=== PATIENT | male | born 1960 | race Caucasian/White ===

== ENCOUNTER → 2020-04-23 13:38 | Outpatient (BNVA) | payer OTHER, SELFPAY | PROVIDERS: PCP Internal Medicine; Visit Provider Nurse Practitioner Family | DX: Z76.89 Persons encountering health services in other specified circumstances (principal) ==

== ENCOUNTER 2020-04-30 10:05 | Outpatient (REF) | payer OTHER, SELFPAY ==
[2020-04-30 11:43] LABS: Hematocrit 42.2 % (42-52); Hemoglobin 13.9 g/dl (14.0-18.0); Mean Corpuscular HGB Conc 32.9 g/dl (31.0-36.0); Mean Corpuscular Volume 90.9 fL (80-98); Mean Platelet Volume 9.8 fL (9.4-12.4); Platelet Count 294 X10*3/uL (160-400); Red Blood Count 4.64 X10*6/uL (4.60-5.80); Red Cell Distribution Width 13.1 % (11.0-16.0); White Blood Count 6.1 X10*3/uL (4.8-10.8)
[2020-04-30 11:51] LABS: Alanine Aminotransferase 30 U/L (0-40); Albumin Level 4.3 g/dL (3.5-5.0); Alkaline Phosphatase 46 U/L (39-117); Anion Gap 13 (12-20); Aspartate Amino Transferase 31 U/L (5-37); Bilirubin Total 1.4 mg/dL (0.0-1.0); Blood Urea Nitrogen 18 mg/dL (9-16); Calcium 9.2 mg/dL (8.4-10.2); Carbon Dioxide 29 mmol/L (22-29); Chloride 105 mmol/L (96-108); Cholesterol 195 mg/dL; Estimated Glomerular Filt Rate 58; Glucose Fasting 87 mg/dL (60-99); HDL Cholesterol 44 mg/dL; LDL Cholesterol Calculated 133 mg/dl; Potassium 4.5 mmol/l (3.3-5.1); Sodium 142 mmol/L (135-145); Total Protein 7.1 g/dL (6.5-8.0); Triglycerides 91 mg/dL
[2020-04-30 12:16] LABS: Prostate Specific Antigen Scr 0.76 ng/mL (<0.05-4.0)
[2020-04-30 12:47] LABS: Glucose Urine UA NEG (NEG); Leukocyte Esterase Urine NEG (NEG); Nitrite Urine NEG (NEG); Specific Gravity - Urine 1.025 (1.005-1.025); Urine Blood NEG (NEG); Urine Ketones NEG (NEG); Urine Protein NEG (NEG-TRACE)
[2020-04-30 12:58] LABS: Appearance Urine CLEAR; Color Urine YELLOW
[2020-04-30 14:34] LABS: Mucus Urine TRACE /LPF; RBC Urine 0 /HPF (0); WBC Urine 0-2 /HPF (0-4)
== END 2020-04-30 10:06 | disposition home or self-care (01) ==
LOC: HO.HMGCLDS 10:05
PROVIDERS: PCP Internal Medicine; Visit Provider Internal Medicine
DX: Z00.00 Encounter for general adult medical examination without abnormal findings (principal); Z12.5 Encounter for screening for malignant neoplasm of prostate
CPT/HCPCS: 36415; 80053; 80061; 81001; 84153; 85027

== ENCOUNTER 2020-05-29 07:34 | Day surgery (SDC) | payer OTHER, SELFPAY ==
[2020-05-23 10:31] VITALS: BMI 30.5
--- NOTE | 2020-05-28 09:40 | HO.ANESPROP2 ---
Documented by User: Tarsha Miranda 05/28/20 09:47 HPI - Anesthesia Eval Consult details Narrative: 60yo M for Colonoscopy [facility] Active Problems Active Problems: All Active Problems (Updated 05/23/20 @ 10:41 by Shannon Garcia) Annual physical exam (Acute) Past Medical History Medical History Elevated cholesterol Family History Family History Father Diabetes mellitus Stroke Mother Asthma Son No problems noted. Daughter No problems noted. Paternal Uncle Colon cancer Surgical History Surgical History H/O colonoscopy History of right inguinal hernia repair Social History Social History Are you a primary live in caregiver to a significant other at home: No Do you presently have visiting nurse or other home services: No Alcohol intake: never Smoking Status: Never smoker Use of substances other than those prescribed or required for medical reasons: No Advance Directives: No Advance Directives Information Provided: No Advance Directives on File: No Recently lost weight without trying: No Meds Allergies Allergy/AdvReac Type Severity Reaction Status Date / Time No Known Allergies Allergy Verified 05/23/20 10:41 Exam Exam Date and Time: May 28, 2020 0940 Height,Weight and Vital Signs: Height 6 ft 2 in Weight 107.955 kg Pertinent Lab Results Pertinent Lab Results: Laboratory Tests 04/30/20 04/30/20 10:15 10:15 WBC 6.1 Hgb 13.9 L Hct 42.2 Plt Count 294 Sodium 142 Potassium 4.5 Chloride 105 Carbon Dioxide 29 BUN 18 H Creatinine 1.27 Assessment and Plan Assessment Anesthesia Assessment: Chart Reviewed Documented by User: Asia Brady 05/29/20 09:14 PMFSH Past Medical History Medical History Elevated cholesterol Family History Family History Father Diabetes mellitus Stroke Mother Asthma Son No problems noted. Daughter No problems noted. Paternal Uncle Colon cancer Surgical History Surgical History H/O colonoscopy History of right inguinal hernia repair Social History Social History Are you a primary live in caregiver to a significant other at home: No Do you presently have visiting nurse or other home services: No Alcohol intake: never Smoking Status: Never smoker Use of substances other than those prescribed or required for medical reasons: No Advance Directives: No Advance Directives Information Provided: No Advance Directives on File: No Recently lost weight without trying: No Meds Allergies Allergy/AdvReac Type Severity Reaction Status Date / Time No Known Allergies Allergy Verified 05/23/20 10:41 Exam Airway Mallampati Class: II TM Dist: >3cm Neck ROM: Full Loose/Missing/Broken Teeth: No Heart: RRR Lungs: CTA Assessment and Plan Assessment Anesthesia Assessment: Anesthesia Plan Discussed and Chart Reviewed Final Anesthetic Review NPO: Yes ASA Class: I Final Preanesthetic Review: Meds/Allgs Chart Reviewed, Consent Obtained/Reviewed and Anes Risks/Benef Reviewed Patient Risk: Low Procedure Risk: Low Anesthetic Plan Anesthetic Plan: MAC: Disposition: Standard PACU
[2020-05-29 08:21] VITALS: BP 115/70; PULSE 62; RESP 14; TEMP 36.8; O2SAT 96; BMI 25.7
[2020-05-29] MEDS: Lactated Ringers 1,000 ML 100 ML IVCONT (08:25)
--- NOTE | 2020-05-29 09:35 | P.HPSUR_ITS ---
Pre-Procedural Eval Section B Chief Complaint: screening Details of Present Illness: Colon cancer screening--Father's brother recent dx of colon cancer Relevant Family History (Specify if Yes): Yes Relevant Social History: None Present Medications: see Short Stay Collaborative assessment Medical History: Significant History (Hyperlipidemia) History of Previous Operations: Relevant previous surgery/procedure and date(s) (colo--neg) Allergies: Allergies Allergy/AdvReac Type Severity Reaction Status Date / Time No Known Allergies Allergy Verified 05/23/20 10:41 Review of Systems Sugical H&P ROS: Negative: Constitution, Cardiovascular, Respiratory, Psychi atric, Gastrointestinal, Genitourinary and Musculoskeletal Exam Surgical H&P Exam: Normal: HEENT, Normal: Heart, Normal: Lungs and Normal: Extremities Plan Diagnosis/Plan: Unchanged I have reviewed the history and physical and performed a pertinent physical examination on my patient. No changes have occurred unless specified.YES
--- NOTE | 2020-05-29 10:17 | PM.PROC ---
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
[2020-05-29 10:21] VITALS: BP 111/63; PULSE 60; RESP 20; TEMP 36.1; O2SAT 100
[2020-05-29 10:35] VITALS: BP 148/94; PULSE 82; RESP 20; TEMP 36.1; O2SAT 99
--- NOTE | 2020-06-05 12:03 | W.PM.OPN ---
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 There was a lot of residual colonic contents including leafy vegetables that continuously clogged scope. Procedure stopped and resumed > 6 times. Able to get to the cecum--AO was visualized as was the valve. Visablity was poor, certainly no microadenomas could be seen. Scope was withdrawn. He will be rescheduled. PLAN: Suggest: Review labs to assess if there is any indication of anemia. Do Fit testing. Consider repeat exam in 12 months. (Sooner if either test raises any questions.) Estimated blood loss (mL): 0 Pathology: none sent Condition: stable Disposition: PACU PLAN IS OUTLINED ABOVE. Dictated By:Shaunna Lanza MDSigned By:<Electronically signed by Shaunna Lanza MD>06/04/20 1002
== END 2020-05-29 11:10 | disposition home or self-care (01) ==
PROVIDERS: PCP Internal Medicine; Visit Provider Internal Medicine Gastroenterology
PROC: 0DJD8ZZ Inspection of Lower Intestinal Tract, Via Natural or Artificial Opening Endoscopic (ICD-10-PCS; CPT 45378; principal; 2020-05-29 09:30)
DX: Z12.11 Encounter for screening for malignant neoplasm of colon (principal); Z80.0 Family history of malignant neoplasm of digestive organs
CPT/HCPCS: 45378

== ENCOUNTER 2021-12-16 09:16 | Outpatient (REF) | payer OTHER, SELFPAY ==
[2021-12-16 11:24] LABS: MANUAL DIFF FLAG NO
[2021-12-16 11:26] LABS: Appearance Urine Clear; Color Urine Yellow; Glucose Urine UA Negative (Negative); Leukocyte Esterase Urine Negative (Negative); Nitrite Urine Negative (Negative); PH 5.5 (5.0-8.0); Urine Blood Negative (Negative); Urine Ketones Negative (Negative); Urine Protein Negative (Neg-Trace)
[2021-12-16 11:30] LABS: Bacteria Urine None Seen (None Seen); Hyaline Casts Urine 0-2 /LPF (0-2); RBC Urine 0-2 /HPF (0-2); Squamous Epithelial Cell Urine 0-2 /HPF (0-2); WBC Urine 0-5 /HPF (0-5)
[2021-12-16 11:50] LABS: Basophils Absolute Auto 0.1 X10*3/uL (0.0-0.2); Basophils Percent Auto 1.2 % (0-2); Eosinophils Absolute Auto 0.4 X10*3/uL (0.0-0.4); Eosinophils Percent Auto 6.9 % (0-4); Hematocrit 42.6 % (42.0-52.0); Hemoglobin 14.6 g/dl (14.0-18.0); Imm Gran Abs Auto 0.01 X10*3/uL (0.00-0.03); Imm Gran Pct Auto 0.2 % (0.0-0.4); Lymphocytes Absolute Auto 2.1 X10*3/uL (1.2-4.9); Lymphocytes Percent Auto 36.9 % (20-40); Mean Corpuscular HGB Conc 34.3 g/dl (31.0-36.0); Mean Corpuscular Hemoglobin 30.2 pg (27.0-33.0); Mean Corpuscular Volume 88.2 fL (80.0-98.0); Mean Platelet Volume 9.8 fL (9.4-12.4); Monocytes Absolute Auto 0.6 X10*3/uL (0.1-1.2); Neutrophils Absolute Auto 2.6 x10*3/uL (2.0-8.3); Neutrophils Percent Auto 44.8 % (45-73); Platelet Count 302 X10*3/uL (160-400); Red Blood Count 4.83 X10*6/uL (4.60-5.80); Red Cell Distribution Width 13.1 % (11.0-16.0); White Blood Count 5.8 X10*3/uL (4.8-10.8)
[2021-12-16 12:12] LABS: Alanine Aminotransferase 30 U/L (0-40); Albumin Level 4.3 g/dL (3.5-5.0); Alkaline Phosphatase 50 U/L (39-117); Anion Gap 14 (12-20); Aspartate Amino Transferase 24 U/L (5-37); Bilirubin Total 0.9 mg/dL (0.0-1.0); Blood Urea Nitrogen 21 mg/dL (9-16); Calcium 9.3 mg/dL (8.4-10.2); Carbon Dioxide 25 mmol/L (22-29); Chloride 105 mmol/L (96-108); Cholesterol 192 mg/dL; Estimated Glomerular Filt Rate > 60; Glucose Fasting 95 mg/dL (60-99); HDL Cholesterol 40 mg/dL; LDL Cholesterol Calculated 118 mg/dl; Potassium 4.6 mmol/L (3.3-5.1); Sodium 139 mmol/L (135-145); Total Protein 7.4 g/dL (6.5-8.0); Triglycerides 174 mg/dL
[2021-12-16 12:16] LABS: PSA,Total (Free>4and<10) 0.71 ng/mL (0.00-4.00)
== END 2021-12-16 09:17 | disposition home or self-care (01) ==
LOC: HO.HMGCLDS 09:16
PROVIDERS: PCP Internal Medicine; Visit Provider Internal Medicine
DX: Z00.00 Encounter for general adult medical examination without abnormal findings (principal); Z12.5 Encounter for screening for malignant neoplasm of prostate; B35.3 Tinea pedis
CPT/HCPCS: 36415; 80053; 80061; 81001; 84153; 85025

== ENCOUNTER 2022-11-03 12:52 | Outpatient (AMB) | payer OTHER, SELFPAY ==
[2022-11-03 13:00] VITALS: BP 96/62; PULSE 78; O2SAT 96; BMI 30.3
--- NOTE | 2022-11-03 13:00 | MHC.PC.OV ---
Vital Signs 11/03/22 13:00 Height 6 ft 2 in Weight 236 lb BMI 30.3 BP 96/62 Blood Pressure Location Rt brachial Position Sitting Pulse 78 Pulse Source Pulse Oximeter Pulse Oximetry (%) 96 Oxygen Delivery Method Room Air Intake Visit Reasons: Gastro Referral-Colonoscopy Due Intake Note: Pt is here today for a follow up visit. Allergies No Known Allergies Allergy (Verified 11/03/22 13:02) Medication List - Last Reconciled 11/03/22 by Zenaida Wilkins MD ketoconazole 2% 1 appl topical BID nystatin 1 appl topical BID Tobacco use date assessed: 11/03/22 Dental Screening Dental Screen Date: 11/03/22 Did you have a dental visit in the last 12 months?: Yes Did you have a dental problem in the last 6 months where you did not have access to dental care?: No Was dental information given to patient?: Patient has dentist HPI Gastro Referral-Colonoscopy Due HPI Details Pt presents for PE. PFSH Medical History Elevated cholesterol Surgical History H/O colonoscopy History of right inguinal hernia repair Family History Father Diabetes mellitus Stroke Mother Asthma Son No problems noted. Daughter No problems noted. Paternal Uncle Colon cancer Social History Housing: House Are you a primary lawn care professional to a significant other at home: No Do you presently have visiting nurse or other home services: No Alcohol intake: never Patient Tobacco Use Status: Never used Tobacco e-Cigarette/Vaping Use: Never Used Current occupational status: employed Cognitive needs: No Hearing needs: No Vision needs: Yes Questionnaire PHQ-9 Over the last 2 weeks, how often have you been bothered by any of the following problems? 1. Little interest or pleasure in doing things: not at all 2. Feeling down, depressed, or hopeless: not at all 3. Trouble falling or staying asleep, or sleeping too much: not at all 4. Feeling tired or having little energy: not at all 5. Poor appetite or overeating: not at all 6. Feeling bad about yourself - or that you are a failure or have let yourself or your family down: not at all 7. Trouble concentrating on things, such as reading the newspaper or watching television: not at all 8. Moving or speaking so slowly that other people could have noticed. Or the opposite - being so fidgety or restless that you have been moving around a lot more than usual: not at all 9. Thoughts that you would be better off or of hurting yourself in some way: not at all Total score: 0 Depression Screening Interpretation: Negative Source: Developed by Drs. Ari Lorenzo, Valeria Pedro, Ben Fuchs and colleagues, with an educational aneta from [employer]. Thrive Questionnaire Date Thrive assessed: 11/03/22 I am a: Patient What is your living situation today?: I have a steady place to live Within the past 12 months, did the food you bought not last and you didn't have the money to get more?: Never true Within the past 12 months, did you worry whether your food would run out before you got money to buy more?: Never true Do you have trouble paying for medicines?: No Do you have trouble getting transportation to medical appointments?: No Do you have trouble paying your heating and electricity bill?: No Do you have trouble taking care of your child, family member or friend?: No Do you have trouble with day-to-day activities such as bathing, preparing meals, shopping, managing finances, etc.?: No Are you currently unemployed and looking for a job?: No Are you interested in more education?: No Please select the resources that you would like help with: None Currently or been in a relationship where the following occur: no concerns reported MEGAN-7 AMB Questionnaire MEGAN-7 Date MEGAN - 7 assessed: 11/03/22 Feeling nervous, anxious, or on edge: 0 = Not at all Not being able to stop or control worryin = Not at all Worrying too much about different things: 0 = Not at all Trouble relaxin = Not at all Being so restless that it is hard to sit still: 0 = Not at all Becoming easily annoyed or irritable: 0 = Not at all Feeling afraid as if something awful might happen: 0 = Not at all Total MEGAN-7 score (0-4 normal; 5-9 mild; 10-14 moderate; 15-21 severe): 0 Source: Developed by Drs. Ari Lorenzo, Valeria Pedro, Ben Fuchs and colleagues, with an educational aneta from [employer]. Review of Systems Const All systems reviewed & are unremarkable except as noted in HPI and below Reports no additional complaints Eyes Reports no additional complaints ENT Reports no additional complaints Card Reports no additional complaints Resp Reports no additional complaints GI Reports no additional complaints Reports no additional complaints Physical exam (Primary Care) Vital Signs: Last Vital Signs Pulse 78 11/03/22 13:00 BP 96/62 11/03/22 13:00 Pulse Ox 96 11/03/22 13:00 Oxygen Delivery Method Room Air 11/03/22 13:00 BMI result Body Mass Index 30.3 Tobacco/Smoking Status: Tobacco use Status Tobacco use date assessed 11/03/22 11/03/22 13:05 Patient Tobacco Use Status Never used Tobacco 11/03/22 13:05 e-Cigarette/Vaping Use Never Used 11/03/22 13:05 PHQ-9: PHQ-9 Score PHQ-9: Total score 0 11/03/22 13:05 Depression Screening Interpretation: Negative Thrive Assessment: Date of Thrive Assessment Date Thrive assessed 11/03/22 11/03/22 13:05 Currently or been in a relationship where the following occur: no concerns reported Const General: no acute distress HENMT Head: Yes normal to inspection Ears: hearing grossly normal bilaterally Face and sinus: Yes normal facial exam Mouth: Normal oral and palatal mucosa present Throat: Yes posterior oropharynx normal Eyes General: appearance normal, both eyes and all related structures Neck Neck: Yes no lymphadenopathy and Yes supple Resp Effort & Inspection: normal respiratory effort Auscultation: clear to auscultation bilaterally Cardio Rhythm: regular rhythm Heart sounds: S1 normal heart sound present and S2 normal heart sound present GI Inspection: Yes normal to inspection Palpation (GI): Soft to palpation Percussion: Yes normal to percussion Auscultation: normal bowel sounds Assessment and Plan Assessment & Plan (1) Annual physical exam: Code(s): Z00.00 - Encounter for general adult medical examination without abnormal findings Plan: well balanced diet, regular exercise discussed. Pt will return for fasting labs. Refer to GI for colonoscopy Orders: Orders Complete Blood Count no Diff Today Z00.00 - Encounter for general adult medical examination without abnormal findings Comprehensive [place]. Panel Fast Today Z00.00 - Encounter for general adult medical examination without abnormal findings Lipid Panel Today Z00.00 - Encounter for general adult medical examination without abnormal findings PSA,Total (Free>4and<10) Today Z00.00 - Encounter for general adult medical examination without abnormal findings Referrals Gastroenterology Referral Z00.00 - Encounter for general adult medical examination without abnormal findings Medications: Refilled ketoconazole 2% 1 appl topical BID 120 grams 2RF Coding Level of Care Code Est Pt Prev Care 40-64y(09125) Diagnoses Annual physical exam Z00.00
== END 2022-11-03 13:54 | disposition home or self-care (01) ==
PROVIDERS: PCP Internal Medicine; Visit Provider Internal Medicine
DX: Z00.00 Encounter for general adult medical examination without abnormal findings (principal)
CPT/HCPCS: 99396

== ENCOUNTER 2022-11-10 09:34 | Outpatient (REF) | payer OTHER, SELFPAY ==
[2022-11-10 13:56] LABS: Hematocrit 41.5 % (42.0-52.0); Hemoglobin 13.7 g/dl (14.0-18.0); Mean Corpuscular Hemoglobin 29.5 pg (27.0-33.0); Mean Corpuscular Volume 89.4 fL (80.0-98.0); Mean Platelet Volume 9.7 fL (9.4-12.4); Platelet Count 276 X10*3/uL (160-400); Red Blood Count 4.64 X10*6/uL (4.60-5.80); White Blood Count 5.9 X10*3/uL (4.8-10.8)
[2022-11-10 14:11] LABS: Alanine Aminotransferase 31 U/L (0-40); Albumin Level 3.9 g/dL (3.5-5.0); Alkaline Phosphatase 50 U/L (39-117); Anion Gap 9 (12-20); Aspartate Amino Transferase 26 U/L (5-37); Bilirubin Total 0.6 mg/dL (0.0-1.0); Blood Urea Nitrogen 15 mg/dL (9-16); Calcium 9.2 mg/dL (8.4-10.2); Carbon Dioxide 28 mmol/L (22-29); Chloride 105 mmol/L (96-108); Cholesterol 176 mg/dL; Estimated Glomerular Filt Rate > 60; Glucose Fasting 93 mg/dL (60-99); HDL Cholesterol 41 mg/dL; LDL Cholesterol Calculated 112 mg/dl; Potassium 4.1 mmol/L (3.3-5.1); Sodium 138 mmol/L (135-145); Total Protein 6.9 g/dL (6.5-8.0); Triglycerides 116 mg/dL
== END 2022-11-10 09:35 | disposition home or self-care (01) ==
LOC: HO.HMGCLDS 09:34
PROVIDERS: PCP Internal Medicine; Visit Provider Internal Medicine
DX: Z00.00 Encounter for general adult medical examination without abnormal findings (principal); Z12.5 Encounter for screening for malignant neoplasm of prostate
CPT/HCPCS: 36415; 80053; 80061; 84153; 85027

== ENCOUNTER 2022-12-29 11:37 | Outpatient (AMB) | payer OTHER, SELFPAY ==
--- NOTE | 2022-12-29 11:42 | A.OFFVIS_ITS ---
Intake Vital Signs 12/29/22 11:43 Height 6 ft 2 in Weight 241 lb 10.026 oz BMI 31.0 BP 127/73 Blood Pressure Location Rt brachial Position Sitting Pulse 83 Pulse Source Pulse Oximeter Intake Visit Reasons: Colonoscopy Screening Intake Note: Pt presents to the office today for a colonoscpy screening. Pt states he does't have any concerns of N/V/D. He states his paternal uncle had colon cancer and has now been for about a year now. Allergies No Known Allergies Allergy (Verified 12/29/22 11:45) HPI Colonoscopy Screening HPI Details LAST VISIT WITH DR. AUGUSTIN 06/10/2020 FINDINGS: LAVERNE-Prostate unremarkable Scope introduced without difficulty. There was a lot of residual colonic contents including leafy vegetables that continuously clogged scope. Procedure stopped and resumed > 6 times. Able to get to the cecum--AO was visualized as was the valve. Visablity was poor, certainly no microadenomas could be seen. Scope was withdrawn. He will be rescheduled. PLAN: Suggest: Review labs to assess if there is any indication of anemia. Do Fit testing. Consider repeat exam in 12 months. (Sooner if either test raises any questions.) TODAY'S VISIT: 62 year old? male here today for pre col onoscopy screening.? Patient was sent to us by his PCP. Patient had 1st colonoscopy at age 51, no polyps found. Colonoscopy 2 years ago in May of 2020 was incomplete due to suboptimal prep and patient was asked to return within a year. Last year patient found out that his paternal uncle of colorectal cancer. ? Patient denies any gastrointestinal symptoms in the past or at present.? Denies history of difficulty with sedation or anesthesia in the past.? Negative for history of sleep apnea.? Denies any history of cardiac, renal, pulmonary, or hepatic disease.?? No history of infectious? diseases like hepatitis A, B, C, HIV or tuberculosis.? Patient is on low-dose aspirin [facility] Medical History Elevated cholesterol Surgical History History of right inguinal hernia repair H/O colonoscopy Family History Father Diabetes mellitus Stroke Mother Asthma Son No problems noted. Daughter No problems noted. Paternal Uncle Colon cancer Social History Housing: House Are you a primary health care analyst to a significant other at home: No Do you presently have visiting nurse or other home services: No Alcohol intake: never Patient Tobacco Use Status: Never used Tobacco e-Cigarette/Vaping Use: Never Used Current occupational status: employed Cognitive needs: No Hearing needs: No Vision needs: Yes Review of Systems Const Denies weight gain and Denies weight loss ENT Reports no additional complaints, Denies dysphagia and Denies odynophagia Card Reports no additional complaints Resp Reports no additional complaints GI Denies abdominal pain, Denies belching, Denies melena, Denies bloating, Denies change in bowel habits, Denies dysphagia, Denies excessive flatus, Denies dyspepsia, Denies heartburn, Denies diarrhea, Denies loose stools, Denies n ausea, Denies odynophagia and Denies vomiting Reports no additional complaints Musc Reports no additional complaints Neuro Reports no additional complaints Psych Reports no additional complaints Endo Reports no additional complaints Physical Exam Vital Signs: Last Vital Signs Pulse 83 12/29/22 11:43 BP 127/73 12/29/22 11:43 BMI result Body Mass Index 31.0 Const General: healthy appearing, no acute distress and well developed Nutritional Appearance: obese Orientation/consciousness: patient oriented x3 HEENT Head: Yes normal to inspection, Yes normocephalic and Yes atraumatic Face and sinus: Yes normal facial exam Mouth: Normal oral and palatal mucosa present Throat: Yes posterior oropharynx normal, Yes tonsils normal and Yes uvula midline Eyes General: appearance normal, both eyes and all related structures Neck Neck: Yes normal visual inspection, Yes full ROM and Yes trachea midline Thyroid: Thyroid normal Resp Effort & Inspection: normal respiratory effort, able to speak in complete sentences, no tracheal deviation and symmetric chest movement Auscultation: clear to auscultation bilaterally Cardio Rate: regular rate Heart sounds: S1 normal heart sound present and S2 normal heart sound present GI Inspection: Yes normal to inspection, No distended and Yes obesity Palpation (GI): Soft to palpation, not firm, nontender and No hepatosplenomegaly present Auscultation: normal bowel sounds General: Yes no CVA tenderness Back/Spine/Pelvis Back: no CVA tenderness Skin General skin exam: elasticity normal, turgor normal and dry skin Neuro General: patient oriented x3 Psych Appearance: grossly normal Mental Status: mental status grossly normal Assessment & Plan Assessment & Plan (1) Screen for colon cancer: Code(s): Z12.11 - Encounter for screening for malignant neoplasm of colon Plan: Patient denies any GI, cardiac or respiratory symptoms.? Denies any issues with anesthesia in the past.? Denies any history of sleep apnea.? No history infectious diseases in the past or present.? Patient is on low-dose aspirin.? Patient reports that a paternal own call diet of colon cancer last year.? Patient denies melena, hematochezia, unintentional weight loss or ribbon like stools.? Discussed at length the pre-procedure,? prep, diet & medications as well as what to expect prior, during and after the procedure.?? Stressed the importance of good bowel prep. ?Recommended the use of Vaseline or Calmoseptine OTC & baby wipes with bowel movements to promote comfort.? ?Patient verbalizes understanding and agrees to plan of care.? He was given the opportunity to ask questions and all questions answered.? We will see him after the procedure.? Coding Level of Care Code Est Pt Level 3 (16875) Diagnoses Screen for colon cancer Z12.11 Time Spent (min) 35 Comment 20 minutes spent with patient and additional 15 minutes spent reviewing his records
[2022-12-29 11:43] VITALS: BP 127/73; PULSE 83; BMI 31.0
== END 2022-12-29 15:55 | disposition home or self-care (01) ==
PROVIDERS: PCP Internal Medicine; Visit Provider Nurse Practitioner Family
DX: Z01.818 Encounter for other preprocedural examination (principal); Z12.11 Encounter for screening for malignant neoplasm of colon
CPT/HCPCS: S0285

== ENCOUNTER → 2022-12-29 11:37 | Outpatient (BNVA) | payer OTHER, SELFPAY | PROVIDERS: PCP Internal Medicine; Visit Provider Nurse Practitioner Family ==

== ENCOUNTER 2024-07-04 09:41 | Outpatient (REF) | payer BC, SELFPAY ==
--- OUTSIDE RECORDS SUMMARY | 2024-07-04 10:36 | XMS_ITS | Patient Health Record ---
Author Organization [facility] Address [address] [place] [address] Care Team Providers Care Wood Buffer Name Role Phone Ivonne OSCAR, Enio Primary Care Provider Ari Lobo Unavailable [phone] Reason For Referral No Information Medications Medication SIG (Take, Route, Frequency, Duration) Notes Start Date End Date Status Multi Vitamin/Minerals 04/20/20242024 Active MoviPrep 100 GM as directed Orally o nce for 1 dose 06/17/2011 04/20/2024 Active Problems Problem Type SNOMED Code ICD Code Onset Dates Problem Status W/U Status Risk Notes Problem Flatulence, eructation and gas pain (734118272) Flatulence, eructation, and gas pain (787.3) Active confirmed Problem Screening for malignant neoplasm of colon (602736279) Special screening for malignant neoplasms, colon (V76.51) Active confirmed Plan Of Treatment Future Test Test Name Order Date COLONOSCOPY 06/17/2011 Insurance Providers Payer Name Payer Address Payer Phone Subscriber Number Group Number Insured Name Patient Relationship to Insured Coverage Start Date Coverage End Date [facility] [address] [place], [place] [id number] ISRAEL DORMAN Self - patient is the insured Medical (General) History Medical History History ICD Code Denies SD,DM,CVA,Lung disease,renal dise ase Surgical History Surgery Date(Month/Year) hernia
[2024-07-04 13:15] LABS: MANUAL DIFF FLAG NO
[2024-07-04 13:25] LABS: Basophils Absolute Auto 0.1 X10*3/uL (0.0-0.2); Eosinophils Absolute Auto 0.4 X10*3/uL (0.0-0.4); Eosinophils Percent Auto 4.8 % (0-4); Hematocrit 43.4 % (42.0-52.0); Hemoglobin 14.6 g/dl (14.0-18.0); Imm Gran Abs Auto 0.02 X10*3/uL (0.00-0.03); Imm Gran Pct Auto 0.2 % (0.0-0.4); Lymphocytes Absolute Auto 1.9 X10*3/uL (1.2-4.9); Lymphocytes Percent Auto 22.9 % (20-40); Mean Corpuscular HGB Conc 33.6 g/dl (31.0-36.0); Mean Corpuscular Volume 89.3 fL (80.0-98.0); Mean Platelet Volume 9.6 fL (9.4-12.4); Monocytes Absolute Auto 0.7 X10*3/uL (0.1-1.2); Monocytes Percent Auto 8.2 % (2-11); Neutrophils Absolute Auto 5.3 x10*3/uL (2.0-8.3); Neutrophils Percent Auto 62.9 % (45-73); Platelet Count 275 X10*3/uL (160-400); Red Blood Count 4.86 X10*6/uL (4.60-5.80); Red Cell Distribution Width 13.2 % (11.0-16.0); White Blood Count 8.4 X10*3/uL (4.8-10.8)
[2024-07-04 13:49] LABS: Alanine Aminotransferase 37 U/L (0-40); Albumin Level 4.3 g/dL (3.5-5.0); Alkaline Phosphatase 47 U/L (39-117); Anion Gap 11 (12-20); Aspartate Amino Transferase 31 U/L (5-37); Bilirubin Total 1.3 mg/dL (0.0-1.0); Blood Urea Nitrogen 18 mg/dL (9-16); Calcium 9.2 mg/dL (8.4-10.2); Carbon Dioxide 27 mmol/L (22-29); Chloride 106 mmol/L (96-108); Cholesterol 192 mg/dL (<200); Estimated Glomerular Filt Rate > 60; Glucose Fasting 95 mg/dL (60-99); HDL Cholesterol 47 mg/dL (>40); LDL Cholesterol Calculated 119 mg/dL (<100); Potassium 4.2 mmol/L (3.3-5.1); Sodium 140 mmol/L (135-145); Total Protein 7.7 g/dL (6.5-8.0); Triglycerides 131 mg/dL (<150)
== END 2024-07-04 09:42 | disposition home or self-care (01) ==
LOC: HO.HMGCLDS 09:41
PROVIDERS: PCP Internal Medicine; Visit Provider Internal Medicine
DX: Z00.00 Encounter for general adult medical examination without abnormal findings (principal); Z13.6 Encounter for screening for cardiovascular disorders
CPT/HCPCS: 36415; 80053; 80061; 85025

== ENCOUNTER 2024-07-18 10:32 | Outpatient (AMB) | payer BC, SELFPAY ==
[2024-07-18 10:33] VITALS: BP 114/76; PULSE 67; RESP 20; TEMP 36.6; O2SAT 97; BMI 29.8
--- NOTE | 2024-07-18 10:33 | MHC.PC.OV ---
Vital Signs 07/18/24 10:33 Height 6 ft 2 in Weight 232 lb BMI 29.8 BP 114/76 Blood Pressure Location Lt brachial Position Sitting Respiration 20 Pulse 67 Pulse Source Pulse Oximeter Temp 97.9 F Temp Source Oral Pulse Oximetry (%) 97 Oxygen Delivery Method Room Air Intake Visit Reasons: PE Intake Note: Pt is here today for PE. Allergies No Known Allergies Allergy (Verified 07/18/24 10:36) Medication List - Last Reconciled 07/18/24 by Zenaida Wilkins MD bisacodyl (Dulcolax (bisacodyl)) 20 mg (4 x 5 mg) PO ONCE 1 day ketoconazole 2% 1 appl topical BID polyethylene glycol 3350 (Miralax) 238 grams PO ONCE 1 day Tobacco use date assessed: 11/03/22 Dental Screening Dental Screen Date: 11/03/22 HPI PE HPI Details Pt presents for PE. [facility] Medical History Elevated cholesterol Surgical History History of right inguinal hernia repair H/O colonoscopy Family History Father Diabetes mellitus Stroke Mother Asthma Son No problems noted. Daughter No problems noted. Paternal Uncle Colon cancer Social History Housing: House Are you a primary home care giver to a significant other at home: No Do you presently have visiting nurse or other home services: No Alcohol intake: never Patient Tobacco Use Status: Never used Tobacco e-Cigarette/Vaping Use: Never Used Current occupational status: employed Cognitive needs: No Hearing needs: No Vision needs: Yes Questionnaire PHQ-9 Over the last 2 weeks, how often have you been bothered by any of the following problems? 1. Little interest or pleasure in doing things: more than half the days 2. Feeling down, depressed, or hopeless: not at all 3. Trouble falling or staying asleep, or sleeping too much: not at all 4. Feeling tired or having little energy: not at all 5. Poor appetite or overeating: not at all 6. Feeling bad about yourself - or that you are a failure or have let yourself or your family down: not at all 7. Trouble concentrating on things, such as reading the newspaper or watching television: not at all 8. Moving or speaking so slowly that other people could have noticed. Or the opposite - being so fidgety or restless that you have been moving around a lot more than usual: not at all 9. Thoughts that you would be better off or of hurting yourself in some way: not at all Total score: 2 Depression Screening Interpretation: Negative Depression Screening Done: Yes 44506 - PHQ-9 Billing: Yes Source: Developed by Drs. Ari Lorenzo, Valeria Pedro, Ben Fuchs and colleagues, with an educational aneta from [employer]. Thrive Questionnaire Date Thrive assessed: 07/18/24 I am a: Patient What is your living situation today?: I have a steady place to live Within the past 12 months, did the food you bought not last and you didn't have the money to get more?: I choose not to answer this question Within the past 12 months, did you worry whether your food would run out before you got money to buy more?: I choose not to answer this question Do you have trouble paying for medicines?: I choose not to answer this question Do you have trouble getting transportation to medical appointments?: No Do you have trouble paying your heating and electricity bill?: I choose not to answer this question Do you have trouble taking care of your child, family member or friend?: No Do you have trouble with day-to-day activities such as bathing, preparing meals, shopping, managing finances, etc.?: No Are you currently unemployed and looking for a job?: No Are you interested in more education?: I choose not to answer this question Please select the resources that you would like help with: None Currently or been in a relationship where the following occur: I choose not to answer THRIVE Score: 0 AUDIT C Alcohol Use Questionnaire (AUDIT-C) 1. How often do you have a drink containing alcohol?: Never 3. How often do you have six or more drinks on one occasion?: Never Total Score: 0 MEGAN-7 AMB Questionnaire MEGAN-7 Date MEGAN - 7 assessed: 07/18/24 Feeling nervous, anxious, or on edge: 0 = Not at all Not being able to stop or control worryin = Not at all Worrying too much about different things: 0 = Not at all Trouble relaxin = Not at all Being so restless that it is hard to sit still: 0 = Not at all Becoming easily annoyed or irritable: 0 = Not at all Feeling afraid as if something awful might happen: 0 = Not at all Total MEGAN-7 score (0-4 normal; 5-9 mild; 10-14 moderate; 15-21 severe): 0 Source: Developed by Drs. Ari Lorenzo, Valeria Pedro, Ben Fuchs and colleagues, with an educational aneta from [employer]. MEGAN-7 Assessment Billing MEGAN-7 Assessment Tool: MEGAN-7 Assessment 71374 Review of Systems Const All systems reviewed & are unremarkable except as noted in HPI and below Eyes Reports no additional complaints ENT Reports no additional complaints Card Reports no additional complaints Resp Reports no additional complaints GI Reports no additional complaints Reports no additional complaints Physical exam (Primary Care) Vital Signs: Last Vital Signs Temp 97.9 F 07/18/24 10:33 Pulse 67 07/18/24 10:33 Resp 20 07/18/24 10:33 BP 114/76 07/18/24 10:33 Pulse Ox 97 07/18/24 10:33 Oxygen Delivery Method Room Air 07/18/24 10:33 BMI result Body Mass Index 29.8 Tobacco/Smoking Status: Tobacco use Status Tobacco use date assessed 11/03/22 07/18/24 10:35 Patient Tobacco Use Status Never used Tobacco 07/18/24 10:35 e-Cigarette/Vaping Use Never Used 07/18/24 10:35 PHQ-9: PHQ-9 Score PHQ-9: Total score 2 07/18/24 10:39 Depression Screening Interpretation: Negative Thrive Assessment: Date of Thrive Assessment Date Thrive assessed 07/18/24 07/18/24 10:39 Currently or been in a relationship where the following occur: I choose not to answer Const General: no acute distress HENMT Head: Yes normal to inspection Ears: hearing grossly normal bilaterally Face and sinus: Yes normal facial exam Mouth: Normal oral and palatal mucosa present Eyes General: appearance normal, both eyes and all related structures Neck Neck: Yes no lymphadenopathy and Yes supple Resp Effort & Inspection: normal respiratory effort Auscultation: clear to auscultation bilaterally Cardio Rhythm: regular rhythm Heart sounds: S1 normal heart sound present and S2 normal heart sound present GI Inspection: Yes normal to inspection Palpation (GI): Soft to palpation Percussion: Yes normal to percussion Auscultation: normal bowel sounds Skin Other: Multiple dysplastic nevi on chest and back Coding Level of Care Code Est Pt Prev Care 40-64y(30026) Diagnoses Dysplastic nevi D23.9 Annual physical exam Z00.00 H/O colonoscopy Z98.890 Additional Codes MEGAN-7 Assessment Billing - MEGAN-7 Assessment Tool: MEGAN-7 Assessment 68262 ([id number]) PHQ-9 - 16502 - PHQ-9 Billing: Yes ([id number]) Assessment & Plan Assessment & Plan (1) Dysplastic nevi: Code(s): D23.9 - Other benign neoplasm of skin, unspecified Category: Medical Plan: refer to dermatology (2) Annual physical exam: Code(s): Z. - Encounter for general adult medical examination without abnormal findings Category: Medical Plan: Well-balanced diet regular physical activity discussed with the patient (3) H/O colonoscopy: Comment: 2020- Dr Lanza, poor prep repeat in 1 year recommended Code(s): Z98.890 - Other specified postprocedural states Category: Surgical Plan: Referred to GI to schedule overdue colonoscopy Orders: Orders Comprehensive Collbran. Panel Fast 1 Year Z00.00 - Encounter for general adult medical examination without abnormal findings Complete Blood Count Auto Diff 1 Year Z00.00 - Encounter for general adult medical examination without abnormal findings Lipid Panel 1 Year Z00.00 - Encounter for general adult medical examination without abnormal findings UA w Microscopic 1 Year Z00.00 - Encounter for general adult medical examination without abnormal findings PSA,Total (Free>4and<10) 1 Year Z00.00 - Encounter for general adult medical examination without abnormal findings Referrals Dermatology Referral D23.9 - Other benign neoplasm of skin, unspecified Gastroenterology Referral Z00.00 - Encounter for general adult medical examination without abnormal findings
--- OUTSIDE RECORDS SUMMARY | 2024-07-18 11:50 | XMS_ITS | Patient Health Record ---
Author Organization [facility] Address [address] [place] [address] Care Team Providers Care Planetarium Sky Show Technician Name Role Phone Ivonne OSCAR, Enio Primary Care Provider Ari Lobo Unavailable [phone] Reason For Referral No Information Medications Medication SIG (Take, Route, Frequency, Duration) Notes Start Date End Date Status Multi Vitamin/Minerals 04/20/20242024 Active MoviPrep 100 GM as directed Orally o nce for 1 dose 06/17/2011 04/20/2024 Active Problems Problem Type SNOMED Code ICD Code Onset Dates Problem Status W/U Status Risk Notes Problem Flatulence, eructation and gas pain (776853364) Flatulence, eructation, and gas pain (787.3) Active confirmed Problem Screening for malignant neoplasm of colon (014489177) Special screening for malignant neoplasms, colon (V76.51) Active confirmed Plan Of Treatment Future Test Test Name Order Date COLONOSCOPY 06/17/2011 Insurance Providers Payer Name Payer Address Payer Phone Subscriber Number Group Number Insured Name Patient Relationship to Insured Coverage Start Date Coverage End Date [facility] [address] [place], [place] [id number] ISRAEL DORMAN Self - patient is the insured Medical (General) History Medical History History ICD Code Denies [place],DM,CVA,Lung disease,renal dise ase Surgical History Surgery Date(Month/Year) hernia
== END 2024-07-18 11:17 | disposition home or self-care (01) ==
PROVIDERS: PCP Internal Medicine; Visit Provider Internal Medicine
DX: D23.9 Other benign neoplasm of skin, unspecified (principal); Z00.00 Encounter for general adult medical examination without abnormal findings; Z98.890 Other specified postprocedural states

== ENCOUNTER → 2024-07-18 10:32 | Outpatient (BNVA) | payer BC, SELFPAY | PROVIDERS: PCP Internal Medicine; Visit Provider Internal Medicine | DX: Z00.00 Encounter for general adult medical examination without abnormal findings (principal); D23.9 Other benign neoplasm of skin, unspecified; Z98.890 Other specified postprocedural states | CPT/HCPCS: 96127 ==

== ENCOUNTER 2024-09-26 11:36 | Outpatient (REF) | payer BC, SELFPAY ==
--- NOTE | ~2024-09-26 | XR_ITS ---
EXAMINATION: XR CHEST CLINICAL INFORMATION: R05.9 - Cough, unspecified COMPARISON: None available. TECHNIQUE: 2 views of the chest were obtained. FINDINGS: The cardiac, hilar, and mediastinal contours are normal. The lungs are clear bilaterally. There is no pneumothorax or pleural effusion. There is no focal osseous or soft tissue abnormality. XR/XR chest 2V IMPRESSION: No active pulmonary disease. Electronically signed by: Dell Mendez MD 09/26/2024 01:45 PM EDT
[2024-09-26 16:05] LABS: Appearance Urine Clear; Color Urine Yellow; Glucose Urine UA Negative (Negative); Leukocyte Esterase Urine Negative (Negative); Nitrite Urine Negative (Negative); PH 5.5 (5.0-9.0); Specific Gravity - Urine 1.015 (1.005-1.025); Urine Blood Negative (Negative); Urine Ketones Negative (Negative); Urine Protein Negative (Neg-Trace)
[2024-09-26 16:12] LABS: Bacteria Urine None Seen (None Seen); Hyaline Casts Urine 0-2 /LPF (0-2); RBC Urine 0-2 /HPF (0-2); Squamous Epithelial Cell Urine 0-2 /HPF (0-2); WBC Urine 0-5 /HPF (0-5)
[2024-09-26 16:37] LABS: PSA,Total (Free>4and<10) 1.05 ng/mL (0.00-4.00)
== END 2024-09-26 11:37 | disposition home or self-care (01) ==
LOC: HO.HMGCX 11:36
PROVIDERS: PCP Internal Medicine; Visit Provider Internal Medicine
DX: N40.0 Benign prostatic hyperplasia without lower urinary tract symptoms (principal); Z12.5 Encounter for screening for malignant neoplasm of prostate; R50.9 Fever, unspecified
CPT/HCPCS: 36415; 71046; 81001; 84153

== ENCOUNTER 2024-09-26 11:36 | Outpatient (AMB) | payer BC, SELFPAY ==
[2024-09-26 12:13] VITALS: BP 112/76; PULSE 79; RESP 18; TEMP 36.6; O2SAT 99; BMI 30.8
--- NOTE | 2024-09-26 12:13 | MHC.PC.OV ---
Vital Signs 09/26/24 12:13 Height 6 ft 2 in Weight 240 lb BMI 30.8 BP 112/76 Blood Pressure Location Rt brachial Position Sitting Respiration 18 Pulse 79 Pulse Source Pulse Oximeter Temp 97.8 F Pulse Oximetry (%) 99 Oxygen Delivery Method Room Air Intake Visit Reasons: Prostate issues Intake Note: Pt is here today for a sick visit. Pt c/o prostate issues. Allergies No Known Allergies Allergy (Verified 09/26/24 12:35) Medication List - Last Reconciled 09/26/24 by Zenaida Wilkins MD ascorbate calcium (vitamin C) PO aspirin 81 mg PO DAILY finasteride 5 mg PO DAILY fish oil-dha-epa PO magnesium PO mecobalamin (vitamin B12) PO tamsulosin (Flomax) 0.4 mg PO BEDTIME Tobacco use date assessed: 09/26/24 Dental Screening Dental Screen Date: 09/26/24 Did you have a dental visit in the last 12 months?: Yes Did you have a dental problem in the last 6 months where you did not have access to dental care?: No Was dental information given to patient?: Patient has dentist HPI Prostate issues HPI Details Patient presents complaining of increased urinary frequency slow stream and difficulty emptying bladder for the last 2 months. Patient denies dysuria abdominal pelvic pain fever chills hematuria constipation. [facility] Medical History (Updated 09/26/24 @ 13:21 by Zenaida Wilkins MD) Dysplastic nevi BPH (benign prostatic hyperplasia) Elevated cholesterol Surgical History History of right inguinal hernia repair H/O colonoscopy Family History Father Diabetes mellitus Stroke Mother Asthma Son No problems noted. Daughter No problems noted. Paternal Uncle Colon cancer Social History Housing: House Are you a primary palliative care physician to a significant other at home: No Do you presently have visiting nurse or other home services: No Alcohol intake: never Patient Tobacco Use Status: Never used Tobacco e-Cigarette/Vaping Use: Never Used service: No Current occupational status: employed Current occupational exposures/hazards: No Cognitive needs: No Hearing needs: No Vision needs: Yes Questionnaire Thrive Questionnaire Date Thrive assessed: 07/18/24 I am a: Patient What is your living situation today?: I have a steady place to live Within the past 12 months, did the food you bought not last and you didn't have the money to get more?: I choose not to answer this question Within the past 12 months, did you worry whether your food would run out before you got money to buy more?: I choose not to answer this question Do you have trouble paying for medicines?: I choose not to answer this question Do you have trouble getting transportation to medical appointments?: No Do you have trouble paying your heating and electricity bill?: I choose not to answer this question Do you have trouble taking care of your child, family member or friend?: No Do you have trouble with day-to-day activities such as bathing, preparing meals, shopping, managing finances, etc.?: No Are you currently unemployed and looking for a job?: No Are you interested in more education?: I choose not to answer this question Please select the resources that you would like help with: None Currently or been in a relationship where the following occur: I choose not to answer THRIVE Score: 0 MEGAN-7 AMB Questionnaire MEGAN-7 Date MEGAN - 7 assessed: 07/18/24 Source: Developed by Drs. Ari Lorenzo, Valeria Pedro, Ben Fuchs and colleagues, with an educational aneta from [employer]. Review of Systems Const All systems reviewed & are unremarkable except as noted in HPI and below Eyes Reports no additional complaints ENT Reports no additional complaints Card Reports no additional complaints Resp Reports no additional complaints GI Reports no additional complaints Reports no additional complaints Physical exam (Primary Care) Vital Signs: Last Vital Signs Temp 97.8 F 09/26/24 12:13 Pulse 79 09/26/24 12:13 Resp 18 09/26/24 12:13 BP 112/76 09/26/24 12:13 Pulse Ox 99 09/26/24 12:13 Oxygen Delivery Method Room Air 09/26/24 12:13 BMI result Body Mass Index 30.8 Tobacco/Smoking Status: Tobacco use Status Tobacco use date assessed 09/26/24 09/26/24 12:40 Patient Tobacco Use Status Never used Tobacco 09/26/24 12:40 e-Cigarette/Vaping Use Never Used 09/26/24 12:15 Thrive Assessment: Date of Thrive Assessment Date Thrive assessed 07/18/24 09/26/24 12:15 Currently or been in a relationship where the following occur: I choose not to answer Const General: no acute distress Resp Effort & Inspection: normal respiratory effort Auscultation: clear to auscultation bilaterally Cardio Rhythm: regular rhythm Heart sounds: S1 normal heart sound present and S2 normal heart sound present GI Inspection: Yes normal to inspection Palpation (GI): Soft to palpation Percussion: Yes normal to percussion Auscultation: normal bowel sounds Coding Level of Care Code Est Pt Level 3 (88604) Diagnoses BPH (benign prostatic hyperplasia) N40.0 Assessment & Plan Assessment & Plan (1) BPH (benign prostatic hyperplasia): Code(s): N40.0 - Benign prostatic hyperplasia without lower urinary tract symptoms Category: Medical Plan: For symptomatic BPH obtain bladder and prostate ultrasound, check UA and PSA, start Flonase and finasteride follow-up in 2 months Orders: Orders UA w Microscopic Today N40.0 - Benign prostatic hyperplasia without lower urinary tract symptoms US bladder Today N40.0 - Benign prostatic hyperplasia without lower urinary tract symptoms PSA,Total (Free>4and<10) Today N40.0 - Benign prostatic hyperplasia without lower urinary tract symptoms US prostate volume Today N40.0 - Benign prostatic hyperplasia without lower urinary tract symptoms XR chest 1V Today R05.9 - Cough, unspecified Medications: New tamsulosin (Flomax) 0.4 mg PO BEDTIME 90 caps 2RF finasteride 5 mg PO DAILY 90 tabs 1RF
--- OUTSIDE RECORDS SUMMARY | 2024-09-26 13:20 | XMS_ITS | Patient Health Record ---
Author Organization [facility] Address [address] [place] [address] Care Team Providers Care Bibliographic Services Specialist Name Role Phone Ivonne OSCAR, Eino Primary Care Provider Ari Lobo Unavailable [phone] Reason For Referral No Information Medications Medication SIG (Take, Route, Frequency, Duration) Notes Start Date End Date Status Multi Vitamin/Minerals 04/20/20242024 Active MoviPrep 100 GM as directed Orally o nce for 1 dose 06/17/2011 04/20/2024 Active Problems Problem Type SNOMED Code ICD Code Onset Dates Problem Status W/U Status Risk Notes Problem Flatulence, eructation and gas pain (104653555) Flatulence, eructation, and gas pain (787.3) Active confirmed Problem Screening for malignant neoplasm of colon (086234708) Special screening for malignant neoplasms, colon (V76.51) Active confirmed Plan Of Treatment Future Test Test Name Order Date COLONOSCOPY 06/17/2011 Insurance Providers Payer Name Payer Address Payer Phone Subscriber Number Group Number Insured Name Patient Relationship to Insured Coverage Start Date Coverage End Date [facility] [address] [place], [place] [id number] ISRAEL DORMAN Self - patient is the insured Medical (General) History Medical History History ICD Code Denies [place],DM,CVA,Lung disease,renal dise ase Surgical History Surgery Date(Month/Year) hernia
== END 2024-09-26 13:24 | disposition home or self-care (01) ==
LOC: HO.HMCC 11:36
PROVIDERS: PCP Internal Medicine; Visit Provider Internal Medicine
DX: N40.0 Benign prostatic hyperplasia without lower urinary tract symptoms (principal)

== ENCOUNTER → 2024-09-26 13:28 | Outpatient (BNV) | payer BC, SELFPAY | PROVIDERS: PCP Internal Medicine; Visit Provider Radiology Diagnostic Radiology | DX: R05.9 Cough, unspecified (principal) | CPT/HCPCS: 71046 ==

== ENCOUNTER 2025-02-13 13:23 | Outpatient (AMB) | payer BC, SELFPAY ==
--- NOTE | 2025-02-13 13:24 | MHC.OFFVIS ---
Vital Signs 02/13/25 13:29 Height 6 ft 2 in Weight 241 lb BMI 30.9 BP 124/76 Blood Pressure Location Rt brachial Position Sitting Pulse 76 Pulse Source Pulse Oximeter Pulse Oximetry (%) 97 Oxygen Delivery Method Room Air Intake Visit Reasons: colo rescreen 2020 Intake Note: ESTABLISHED PATIENT for recall screening. Last colo via Dr. Lanza 2020. Pt long overdue. Chief Complaint; Pt denies any GI sx or concerns at this time. Jig Inspector Required: No Accompanied by: Self / Same As Patient Allergies No Known Allergies Allergy (Verified 09/26/24 12:35) HPI HPI colo rescreen 2020: Details: LAST VISIT: Screen for colon cancer ? Patient denies any GI, cardiac or respiratory symptoms.? Denies any issues with anesthesia in the past.? Denies any history of sleep apnea.? No history infectious diseases in the past or present.? Patient is on low-dose aspirin.? Patient reports that a paternal uncle of colon cancer last year.? Patient denies melena, hematochezia, unintentional weight loss or ribbon like stools.? Discussed at length the pre-procedure,? prep, diet & medications as well as what to expect prior, during and after the procedure.?? Stressed the importance of good bowel prep. ?Recommended the use of Vaseline or Calmoseptine OTC & baby wipes with bowel movements to promote comfort.? ?Patient verbalizes understanding and agrees to plan of care.? He was given the opportunity to ask questions and all questions answered.? We will see him after the procedure.? TODAY'S VISIT Patient is here today again to discuss colonoscopy. Unsure why she was never scheduled for colonoscopy. Patient denies any change in his health status. Denies any melena, hematochezia, unintentional weight loss or ribbon like stools. Patient denies dyspepsia, dysphagia or odynophagia. Last colonoscopy in 2020 patient was supposed to return for colo screening in the year. Positive family history of CRC. Patient's paternal uncle diagnosed with stage IV colorectal cancer and in his early 60s in 2021. Patient is aware that he should have had his colonoscopy done. Patient denies any GI concerning symptoms. [facility] Medical History Dysplastic nevi BPH (benign prostatic hyperplasia) Elevated cholesterol Surgical History History of right inguinal hernia repair H/O colonoscopy Family History Father Diabetes mellitus Stroke Mother Asthma Son No problems noted. Daughter No problems noted. Paternal Uncle Colon cancer Social History Housing: House Are you a primary home care coordinator to a significant other at home: No Do you presently have visiting nurse or other home services: No Alcohol intake: never Patient Tobacco Use Status: Never used Tobacco e-Cigarette/Vaping Use: Never Used service: No Current occupational status: employed Current occupational exposures/hazards: No Cognitive needs: No Hearing needs: No Vision needs: Yes Review of Systems Const Denies weight gain and Denies weight loss ENT Reports no additional complaints, Denies dysphagia and Denies odynophagia Card Reports no additional complaints Resp Reports no additional complaints GI Denies abdominal pain, Denies belching, Denies melena, Denies bloating, Denies change in bowel habits, Denies dysphagia, Denies excessive flatus, Denies dyspepsia, Denies heartburn, Denies diarrhea, Denies loose stools, Denies nausea, Denies odynophagia and Denies vomiting Reports no additional complaints Musc Reports no additional complaints Neuro Reports no additional complaints Psych Reports no additional complaints Endo Reports no additional complaints Physical Exam Vital Signs: Last Vital Signs Pulse 76 02/13/25 13:29 BP 124/76 02/13/25 13:29 Pulse Ox 97 02/13/25 13:29 Oxygen Delivery Method Room Air 02/13/25 13:29 BMI result Body Mass Index 30.9 Const General: healthy appearing, no acute distress and well developed Nutritional Appearance: obese Orientation/consciousness: patient oriented x3 HEENT Head: Yes normal to inspection, Yes normocephalic and Yes atraumatic Face and sinus: Yes normal facial exam Mouth: Normal oral and palatal mucosa present Throat: Yes posterior oropharynx normal, Yes tonsils normal and Yes uvula midline Eyes General: appearance normal, both eyes and all related structures Neck Neck: Yes normal visual inspection, Yes full ROM and Yes trachea midline Thyroid: Thyroid normal Resp Effort & Inspection: normal respiratory effort, able to speak in complete sentences, no tracheal deviation and symmetric chest movement Auscultation: clear to auscultation bilaterally Cardio Rate: regular rate Heart sounds: S1 normal heart sound present and S2 normal heart sound present GI Inspection: Yes normal to inspection, No distended and Yes obesity Palpation (GI): Soft to palpation, not firm, nontender and No hepatosplenomegaly present Auscultation: normal bowel sounds General: Yes no CVA tenderness Back/Spine/Pelvis Back: no CVA tenderness Skin General skin exam: elasticity normal, turgor normal and dry skin Neuro General: patient oriented x3 Psych Appearance: grossly normal Mental Status: mental status grossly normal Assessment & Plan Assessment & Plan (1) H/O colonoscopy: Comment: 2020- Dr Lanza, poor prep repeat in 1 year recommended Code(s): Z98.890 - Other specified postprocedural states Category: Surgical (2) Screen for colon cancer: Code(s): Z12.11 - Encounter for screening for malignant neoplasm of colon Plan With expect before during and after procedure discussed with patient. Stressed the importance of good bowel prep and clear liquid diet day before procedure. I will see patient after the procedure, sooner on as needed basis. He is agreeable to this plan and verbalizes understanding of instructions. He was given the opportunity to ask questions and all questions answered. Thank you for allowing me to participate in his care Orders: Referrals GI Procedure Notification Z12.11 - Encounter for screening for malignant neoplasm of colon Medications: New bisacodyl (Dulcolax (bisacodyl)) Start taking 2 tablet every night 7 days before the procedure and 1 day before procedure take 4 tablets at noon time followed by MiraLax prep 10 mg (2 x 5 mg) PO BEDTIME 16 tabs 0RF Z12.11 - Encounter for screening for malignant neoplasm of colon polyethylene glycol 3350 (Miralax) As directed by gastroenterology department at [facility] 238 grams PO ONCE 238 grams 0RF Z12.11 - Encounter for screening for malignant neoplasm of colon Coding Level of Care Code Est Pt Level 3 (75680) Diagnoses H/O colonoscopy Z98.890 Screen for colon cancer Z12.11 Time Spent (min) 30 Comment 20 minutes spent with patient and additional 10 minutes spent reviewing his records
[2025-02-13 13:29] VITALS: BP 124/76; PULSE 76; O2SAT 97; BMI 30.9
--- OUTSIDE RECORDS SUMMARY | 2025-02-13 17:03 | XMS_ITS | Patient Health Record ---
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 Name Role Phone Ivonne OSCAR, Enio Primary Care Provider Ari Lobo Unavailable [phone] Reason For Referral No Information Medications Medication SIG (Take, Route, Frequency, Duration) Notes Start Date End Date Status Multi Vitamin/Minerals 04/20/20242024 Active MoviPrep 100 GM as directed Orally o nce; Duration: 1 dose 06/17/2011 04/20/2024 Active Problems Problem Type SNOMED Code ICD Code Onset Dates Problem Status W/U Status Risk Notes Problem Flatulence, eructation and gas pain (935973936) Flatulence, eructation, and gas pain (787.3) Active confirmed Problem Screening for malignant neoplasm of colon (485994679) Special screening for malignant neoplasms, colon (V76.51) Active confirmed Plan Of Treatment Future Test Test Name Order Date COLONOSCOPY 06/17/2011 Insurance Providers Payer Name Payer Address Payer Phone Subscriber Number Group Number Insured Name Patient Relationship to Insured Coverage Start Date Coverage End Date [facility] [address] [place], [place] [id number] [place]EL DORMAN Self - patient is the insured Medical (General) History Medical History History ICD Code Denies [place],DM,CVA,Lung disease,renal dise ase Surgical History Surgery Date(Month/Year) hernia
== END 2025-02-13 14:05 | disposition home or self-care (01) ==
LOC: HO.HGI 13:24
PROVIDERS: PCP Internal Medicine; Visit Provider Nurse Practitioner Family
DX: Z01.818 Encounter for other preprocedural examination (principal); Z12.11 Encounter for screening for malignant neoplasm of colon; Z80.0 Family history of malignant neoplasm of digestive organs
CPT/HCPCS: S0285